=== PATIENT | female | born 1950 | race African-American/Black ===

== ENCOUNTER → 2020-08-23 | Outpatient (CLI) | payer MEDICARE, OTHER ==
[~2020-08-23] MED LIST: ASPIR 8181 MG PO; ASPIRIN EC81 MG PO; ATORVASTATIN CA20 MG PO; ATORVASTATIN CA40 MG PO; BRILINTA 90 MG90 MG PO; COZAAR100 MG PO; FAMOTIDINE20 MG PO; HYDROXYZINE HCL25 MG PO; IMDUR ER TAB 6060 MG PO; IPRAT-ALBUT 0.5-3 ML INH; NITROGLYCERIN0.4 MG SL; NITROSTAT0.4 MG SL; NORVASC 5 MG TAB5 MG PO; PROTONIX 40 MG40 M1 PO
== END ==
LOC: NM 08-16 14:00
DX: R10.11 Right upper quadrant pain (principal); R94.5 Abnormal results of liver function studies
CPT/HCPCS: 78226; A9537

== ENCOUNTER → 2020-08-29 | Outpatient (CLI) | payer MEDICARE | LOC: HEART 5 08:00 | DX: I25.10 Atherosclerotic heart disease of native coronary artery without angina pectoris (principal); R53.83 Other fatigue; R06.02 Shortness of breath | CPT/HCPCS: 78452; 93306; A9502; J2785 ==

== ENCOUNTER 2020-12-28 09:28 | Observation (INO) | payer MEDICARE ==
[~2020-12-28] VITALS: Ht 149.9 cm; Wt 63.5 kg
[~2020-12-28 09:28] MED LIST changes: -HYDROXYZINE HCL25 MG PO; -PROTONIX 40 MG40 M1 PO
[2020-12-28 11:26] LABS: RED BLOOD COUNT 4.68 M/UL (4.00-5.10); WHITE BLOOD COUNT 5.1 K/UL (4.5-11.0)
[2020-12-28 12:02] LABS: BUN/CREATININE RATIO 13 (0-10)
[2020-12-28] MEDS ORDERED: ATORVASTATIN CA40 MG PO (14:27)
[2020-12-28] MEDS ORDERED: HYDROXYZINE HCL25 MG PO (14:28)
[2020-12-28] MEDS ORDERED: NITROSTAT0.4 MG SL (15:26)
[2020-12-29 07:02] LABS: BUN/CREATININE RATIO 17 (0-10)
[2020-12-29] MEDS ORDERED: PROTONIX 40 MG40 M1 PO (14:16)
== END 2020-12-29 15:05 | disposition home or self-care (01) ==
LOC: ER1 09:28 → CDU 13:59 → M/S 15:21
PROVIDERS: Emergency Medicine; ADMIT Internal Medicine
DX: R07.89 Other chest pain (principal); I25.10 Atherosclerotic heart disease of native coronary artery without angina pectoris; I10 Essential (primary) hypertension; E78.5 Hyperlipidemia, unspecified; E11.9 Type 2 diabetes mellitus without complications; F17.210 Nicotine dependence, cigarettes, uncomplicated; K76.0 Fatty (change of) liver, not elsewhere classified; Z20.822 Contact with and (suspected) exposure to COVID-19; Z88.0 Allergy status to penicillin; Z95.5 Presence of coronary angioplasty implant and graft; Z79.82 Long term (current) use of aspirin; Z79.899 Other long term (current) drug therapy
CPT/HCPCS: 36415; 71045; 80053; 80061; 82550; 82553; 83036; 83874; 84484; 85025; 85610; 85730; 93005; 99285; G0378; U0002

== ENCOUNTER → 2021-01-31 | Outpatient (CLI) | payer MEDICARE ==
[~2021-01-31] MED LIST changes: +HYDROXYZINE HCL25 MG PO; +PROTONIX 40 MG40 M1 PO
[2021-01-31 12:45] LABS: HEMOGLOBIN 13.5 gm/dl (12.3-15.3); RED BLOOD COUNT 4.54 M/UL (4.00-5.10); WHITE BLOOD COUNT 6.2 K/UL (4.5-11.0)
[2021-01-31 12:58] LABS: BUN/CREATININE RATIO 19 (0-10)
== END ==
LOC: LAB 11:42
PROVIDERS: Internal Medicine Interventional Cardiology
DX: I25.110 Atherosclerotic heart disease of native coronary artery with unstable angina pectoris (principal); R06.02 Shortness of breath; E78.5 Hyperlipidemia, unspecified
CPT/HCPCS: 36415; 80048; 85025; 85610; 85730

== ENCOUNTER → 2021-02-27 | Outpatient (CLI) | payer MEDICARE | LOC: CATH 09:40 | DX: I25.10 Atherosclerotic heart disease of native coronary artery without angina pectoris (principal); R07.9 Chest pain, unspecified; I20.0 Unstable angina; R06.02 Shortness of breath; E78.5 Hyperlipidemia, unspecified; Z95.5 Presence of coronary angioplasty implant and graft; Z20.822 Contact with and (suspected) exposure to COVID-19 | CPT/HCPCS: 82962; 99152; 99153; C1769; J1644; J2250; J3010; J7030; Q9965; U0002 ==

== ENCOUNTER 2022-03-04 16:44 | Emergency (ER) | payer MEDICARE ==
[2022-03-04 18:46] LABS: HEMOGLOBIN 14.4 gm/dl (12.3-15.3); RED BLOOD COUNT 4.79 M/UL (4.00-5.10); WHITE BLOOD COUNT 8.1 K/UL (4.5-11.0)
[2022-03-04 19:09] LABS: BUN/CREATININE RATIO 16 (0-10)
[2022-03-04] MEDS ORDERED: METRONIDAZOLE500 MG PO (22:30)
[2022-03-04] MEDS ORDERED: CIPRO500 MG PO (22:30)
[2022-03-04] MEDS ORDERED: ZOFRAN 4 MG TAB4 MG PO (22:31)
[2022-03-04] MEDS ORDERED: PROTONIX 40 MG40 M1 PO (22:31)
== END 2022-03-04 22:48 | disposition home or self-care (01) ==
LOC: ER1 16:44
PROVIDERS: Preventive Medicine Occupational Medicine
DX: N39.0 Urinary tract infection, site not specified (principal); K57.32 Diverticulitis of large intestine without perforation or abscess without bleeding; I25.10 Atherosclerotic heart disease of native coronary artery without angina pectoris; I10 Essential (primary) hypertension
CPT/HCPCS: 71045; 80053; 81001; 82550; 82553; 83690; 83880; 84484; 85025; 85652; 86140; 87086; 93005; 96374; 96375; 99285; C9113; J2405

== ENCOUNTER → 2022-04-24 | Outpatient (CLI) | payer MEDICARE ==
[~2022-04-24] MED LIST changes: +CIPRO500 MG PO; +METRONIDAZOLE500 MG PO; +ZOFRAN 4 MG TAB4 MG PO
== END ==
LOC: KOH-I 10:38
DX: M51.16 Intervertebral disc disorders with radiculopathy, lumbar region (principal); M43.16 Spondylolisthesis, lumbar region; M47.26 Other spondylosis with radiculopathy, lumbar region; M48.07 Spinal stenosis, lumbosacral region; M51.17 Intervertebral disc disorders with radiculopathy, lumbosacral region
CPT/HCPCS: 72148